=== PATIENT | female | born 1960 | race Caucasian/White ===

== ENCOUNTER 2018-03-27 01:04 | Outpatient (CLI) | payer BC, SELFPAY ==
--- NOTE | 2018-03-27 12:40 | DI.MAMMO_ITS ---
SYMPTOMS/DIAGNOSIS: SCREENING, Z12.31 BILATERAL SCREENING MAMMOGRAMS: Mammograms were interpreted according to the usual protocol including computer analysis with CAD system, tomosynthesis and C view imaging. Comparison is made with exams from 2013 through 2017. The breasts are composed of scattered fibroglandular densities, breast density category B. No suspicious masses or suspicious microcalcifications are seen. There has been no significant change. IMPRESSION: Category 1B, negative mammogram. Yearly screening mammography is recommended. [facility] ASSESSMENT OF FINDINGS: Negative. Category 1. Patient will receive a letter notifying them of these results. BI-RADS category B. There are scattered areas of fibroglandular density.
== END 2018-03-27 01:24 ==
PROVIDERS: PCP Family Medicine; Visit Provider Physician Assistant Medical
DX: Z12.31 Encounter for screening mammogram for malignant neoplasm of breast (principal)
CPT/HCPCS: 77063; 77067

== ENCOUNTER 2019-01-28 13:31 | Outpatient (CLI) | payer BC, SELFPAY ==
[2019-01-28 14:41] LABS: HCT 40.1 % (36.0-46.0); HGB 13.2 g/dL (12.0-15.5); Mean Corp. HGB Concentration 32.9 g/dL (32.0-36.0); Mean Corpuscular Hemoglobin 30.7 pg (27.0-33.0); Mean Corpuscular Volume 93.3 fL (80-95); Mean Platelet Volume 9.8 fL (8.0-11.0); Platelet Count 249 x1000/uL (130-400); RBC Distribution Width 11.9 % (11.7-14.6); White Blood Cell Count 4.45 k/cumm (4.4-10.8)
[2019-01-28 15:33] LABS: Anion Gap 6.3 mmol/L (3-11); BUN 11 mg/dL (7-18); CO2 30.7 mmol/L (21.0-32.0); CREATININE 0.67 mg/dL (0.55-1.02); Calcium 9.2 mg/dL (8.5-10.1); Chloride 105 mmol/L (98-107); Glucose 97 mg/dL (74-106); Sodium 142 mmol/L (136-145)
== END 2019-01-28 13:51 ==
PROVIDERS: PCP Family Medicine; Visit Provider Obstetrics & Gynecology Gynecology
DX: N81.10 Cystocele, unspecified (principal); Z01.818 Encounter for other preprocedural examination; Z01.812 Encounter for preprocedural laboratory examination
CPT/HCPCS: 36415; 80048; 85027; 86850; 86900; 86901

== ENCOUNTER 2019-02-05 15:09 | Observation (INO) | payer BC, SELFPAY ==
[2019-02-05] VITALS (13 sets, daily range): BP systolic 99–119; BP diastolic 44–63; PULSE 52–74; RESP 14–20; TEMP 36.1–37.6; O2SAT 95–100
[2019-02-05] MEDS: Lactated Ringers 1,000 ML 80 ML IV ×3 (09:49→16:24)
[2019-02-05] MEDS: ceFAZolin 2 GM/50 ML BAG IVPB (11:20)
--- NOTE | 2019-02-05 12:30 | UTER_PTH ---
PATIENT: Stefania Main LOC: U#:[id number] AGE/SX: 58/F ROOM: 214 RE02/05/[address]: Siena Root : 1960 BED: A DIS: 02/06/2019 SPEC #: [id number] RECD: 02/05/19 15:33 STATUS: YAMILET REQ #: [id number] GINA: 02/05/19 12:[address]: Siena Root DEPT: Surgical Specimen RECD BY: Peyton Lemus ENTERED: 02/05/19 15:37 SP TYPE: UTER OTHR DR: Sherman Chavez Tissues: 1 - UTERUS W OR W/O OVARIES(NOT TUMOR/PROLAPSE) Procedures: GROSS AND MICRO LEVEL 4 Comments: [id number]
[2019-02-05] MEDS: Ondansetron 4 MG/2 ML VIAL IVP (15:13)
[2019-02-05] MEDS: Droperidol 5 MG/2 ML VIAL 0.625 MG IVP (15:50)
--- NOTE | 2019-02-05 16:51 | W.PM.OP ---
Date of service: 02/05/19 Time of Service: 16:51 Operative Note Operative Note DATE OF PROCEDURE: 02/05/19 PRE-OP DIAGNOSIS: Stage II uterine prolapse, dyspareunia POST-OP DIAGNOSIS: same PROCEDURE: Transvaginal hysterectomy with bilateral salpingo-oophorectomy, bladder cystoscopy SURGEON: Siena Root DYNAMIC BALANCER: Reinaldo Simon ANESTHESIA: GETA ESTIMATED BLOOD LOSS: 50 PATHOLOGY: other (Uterus fallopian tubes and ovaries to pathology) COMPLICATIONS: None Patient was transported to: PACU Patient's condition: stable Indications: 58-year-old female with approximately a year of dyspareunia associated with stage II pelvic organ prolapse. Findings: Uterus is small with descent of the uterine cervix two thirds of the length of the vagina. The bladder is well supported as is the rectum with no appreciable cystocele or rectocele. Cystoscopy was performed showed bilateral reflux of methylene blue dye from both ureters and a normal bladder mucosa. Procedure Description: Patient was taken the operating room she is placed in the dorsal supine position and general endotracheal anesthesia was administered without difficulty. She was then placed in the dorsal lithotomy position in yellowfin stirrups prepped and draped in the usual sterile fashion. A surgical timeout was performed. She received 2 g of Ancef on arrival to the OR. Vaz catheter was placed to gravity drainage a weighted vaginal speculum was placed in to the vagina and the anterior lip of the cervix grasped with single-tooth tenaculum the body of the cervix was infiltrated with 1% lidocaine with epinephrine in a circumferential fashion. Bovie electrocautery was then used to incise the body of the cervix in a circumferential fashion and the posterior cul-de-sac was entered with curved Parrish scissors. Through this incision a longbilled weighted speculum was placed where it remained for the duration of the surgery. The anterior cervical fascia was bluntly dissected away from the pill of the ileum of the anterior vaginal wall allowing visualization of the vesicle fold. A curved Zeppelin clamp was used to grasp the right uterosacral cardinal ligament complex which was then transected and suture-ligated with 0 Vicryl. A similar technique was used on the contralateral uterosacral cardinal ligament complex both sutures were held long. The anterior cul-de-sac was then entered sharply with Metzenbaum scissors and through the incision a curved Kelly was placed to retract the bladder away from the operative field. The broad ligament was then sequentially clamped transected and suture-ligated bilaterally until the uterine cornua reached. A curved Zeppelin clamp was then placed across the right uterine cornua where it was clamped transected and suture-ligated similar technique was carried out on the contralateral side. Once the uterus was delivered off the operative field the pedicles were inspected and noted to be hemostatic. The left fallopian tube and left ovary were located and clamped with curved Zeppelin clamp and transected. This free tie of 0 Vicryl was then placed across the pedicle followed by a 6 suture of 0 Vicryl in a Luz stitch fashion. The specimen was then passed off the operative field. The right fallopian tube was located followed out to its fimbriated end and the ovary and fallopian tube were clamped with curved Zeppelin clamp transected and the pedicle suture ligated in Luz fashion with using 0 Vicryl. Both pedicles were noted to be hemostatic. The weighted duckbill speculum was then removed and the peritoneum was located and closed with a pursestring suture of 2-0 Vicryl. The vaginal cuff was then reapproximated with a running lock suture of 0 Vicryl extending from superior to the inferior portion of the vaginal cuff. Care was taken to incorporate the uterosacral cardinal ligament complexes into the vaginal cuff closure. A cystoscopy was performed with instillation of normal saline into the bladder and an injection of methylene blue given by anesthesia. Bilateral brisk reflux of the diet was noted from both ureteral orifices. Vaz catheter was reinserted the patient was placed in the dorsal supine position awakened extubated and transported recovery area in stable condition. All sponge lap needle counts correct x2
[2019-02-05] MEDS: Ketorolac 30 MG/ML VIAL IVP ×2 (17:59→22:17)
[2019-02-05] MEDS: Normal Saline Flush 10 ML SYR IV ×2 (17:59→22:18)
[2019-02-05] MEDS: Docusate Sodium 100 MG CAP PO (20:05)
[2019-02-05] MEDS: Lactated Ringers 1,000 ML 125 ML IV (22:45)
--- NOTE | 2019-02-06 02:30 | NUR.NOTE ---
Nursing Note: Pt received from PACU staff on M/S bed. AO x 3, accompanied by during admission. visited and ordered for additional Promethazine IVPB, infused and with good effect. Medicated with ketoralac as scheduled and also with good relief. Minimal vaginal bloody discharge noted on the sanitary pad. Vaz discontinued and voided in the toilet with few streaks of blood. Ambulate in the hallway and feels much better this end of shift. Call lights at reach.
[2019-02-06] MEDS: Ketorolac 30 MG/ML VIAL IVP (04:20)
[2019-02-06 04:23] VITALS: BP 101/57; PULSE 74; RESP 18; TEMP 37.2; O2SAT 95
[2019-02-06] MEDS: Lactated Ringers 1,000 ML 125 ML IV (06:21)
[2019-02-06 07:52] LABS: HCT 33.1 % (36.0-46.0); Mean Corp. HGB Concentration 33.2 g/dL (32.0-36.0); Mean Corpuscular Hemoglobin 30.6 pg (27.0-33.0); Mean Corpuscular Volume 91.9 fL (80-95); Mean Platelet Volume 10.6 fL (8.0-11.0); Platelet Count 201 x1000/uL (130-400); White Blood Cell Count 10.36 k/cumm (4.4-10.8)
[2019-02-06 08:46] VITALS: BP 102/63; PULSE 56; RESP 18; TEMP 36.6; O2SAT 97
[2019-02-06] MEDS: Docusate Sodium 100 MG CAP PO (09:00)
--- NOTE | 2019-02-06 09:22 | W.PM.DS.N ---
Date of service: 02/06/19 Time of Service: 09:22 DS: Diagnosis Discharge Diagnosis (1) Pelvic organ prolapse quantification stage 2 cystocele: Status: Chronic (2) Dyspareunia: Status: Chronic (3) H/O vaginal hysterectomy: Status: Acute (4) H/O bilateral salpingo-oophorectomy: Status: Acute Discharge Plan Disposition Patient Disposition: HOME Condition: Fair Discharge Details Reason For Visit: TVH, BSO Admit Date/Time: 02/05/19 15:09 Admit Provider: Siena Root Attending Provider: Siena Root Primary Care Provider: Sherman Chavez Hospital Course Hospital Course: Patient was admitted the morning of surgery and underwent the above-stated procedures. Her postop course was uncomplicated she was discharged home on postop day #1 tolerating regular diet, passing flatus, and requiring a minimal amount of pain medications. Plan is to have her follow-up in approximately 2 weeks for a postop check and to discuss the pathology results from the surgery. Patient will be given a prescription for Percocet 5/325 number 5 tablets to be dispensed however she will be unable to fill it until tomorrow morning since the local pharmacies are closed secondary to the holiday. She is aware of this and was instructed to have the staff notify me in the event that she needs additional narcotic support for her pain between tonight and tomorrow morning. In that case I will have the patient presented to the emergency room be evaluated and given a prescription of Percocet that will suffice until tomorrow morning. Home Meds and New Rx's Prescriptions: No Action bupropion HCl 150 mg tablet sustained-release 12 hr 300 mg PO DAILY RF: 0 cromolyn 4 % drops See Rx Instructions OP .every 12 hours PRNRF: 0 levothyroxine 112 mcg capsule 112 mcg PO DAILY RF: 0 ibuprofen 600 mg tablet 600 mg PO TID PRNRF: 0 liothyronine 5 mcg tablet 15 mcg PO DAILY RF: 0 loratadine 10 mg capsule 10 mg PO DAILY RF: 0 zolpidem 12.5 mg tablet,ext release multiphase 12.5 mg PO QHS RF: 0 cholecalciferol (vitamin D3) [Vitamin D3] 2,000 unit Tablet 2,000 unit RF: 0 Discharge Instructions Additional Instructions: If feel that you will not be able to be at home this evening without Percocet the plan is to have you present to the emergency room at [facility] and receive additional tablets until you are able to have your prescription filled at your local pharmacy. Call the office on Sunday02/10/2019 and change her appointment time for your postop check to 02/20/2019. No driving a car for approximately 2 weeks or until you have your appointment with Dr. Root for your postop check. No lifting over 10 pounds. Definitely no lifting your puppy!!!! Call and ask the conveyor operator to page the on-call provider with any concerns or questions you may have. Stand Alone Forms: [facility] Post Gynecology Surgery, Nursing Discharge Form Referrals: Siena Root MD [ [facility] STAFF PHYSICIAN] - Activity:: Activity as Tolerated Equipment/Supplies:: No Equipment Needed Diet:: As Tolerated Discharge Orders Discharge Orders: Discharge Order (Routine); Ordered 02/06/19 Ordered By: Siena Root Discharge Data Discharge Date/Time-TO BE ENTERED AT DEPARTURE: 02/06/19 15:18 DS: Summary Status at Discharge Functional status at discharge: independent ambulation Overall status at discharge: patient is progressing back to baseline Mental Status: mental status grossly normal Speech and Movement: speech and movement normal Mood: congruent mood Affect: normal affect Exam Const General: cooperative and comfortable Nutritional Appearance: average body habitus Resp Effort & Inspection: normal respiratory effort Auscultation: clear to auscultation bilaterally Cardio Rate: regular rate Rhythm: regular rhythm General: deferred Skin General skin exam: no rashes or lesions noted Extrem General: normal to inspection, full ROM and capillary refill normal Psych Appearance: grossly normal Mental Status: mental status grossly normal Speech and Movement: speech and movement normal Mood: congruent mood Affect: normal affect DS: Data Vitals/I&O Vitals and I&O: Vital Signs Temperature 97.9 F 02/06/19 08:46 Temperature Source Tympanic 02/06/19 08:46 Pulse 56 L 02/06/19 08:46 Pulse Rhythm Regular 02/06/19 09:09 Respiratory Rate 18 02/06/19 08:46 Respiratory Effort Non-Labored 02/06/19 09:09 Respiratory Depth Normal 02/06/19 09:09 Respiratory Pattern Normal 02/06/19 09:09 Blood Pressure 102/63 02/06/19 08:46 Pulse Oximetry 97 02/06/19 08:46 Respiratory End-tidal CO2 39 02/05/19 16:25 Oxygen Delivery Method Room Air 02/06/19 08:46 Oxygen Flow Rate 0 02/06/19 08:46 Pain Level 0 02/06/19 08:46 Intake & Output 02/05/19 02/05/19 02/06/19 11:59 23:59 11:59 Intake Total 2099.2049. 2510 / 2510 Output Total 700 / 700 1850 / 1850 Balance 1399. 1350. / 1399. 660 / 660 Weight 172 lb 13.478 oz 172 lb 13.478 oz Intake: IV 2049. / 1960 / 1960 Oral 550 / 550 Output: Urine 700 / 700 1850 / 1850 Other: Urine Color Yellow Yellow Urine Appearance Clear Hematuria Clear Urine Odor Normal Comment DRAINING BLUE FLUID. light blood INDIGO BLUE USED DURING SURGERY. Emesis Description None Voiding Methods Toilet Data Completed and Pending Labs on day of discharge: Labs from last 24 hours 02/06/19 07:20 WBC 10.36 RBC 3.60 L Hgb 11.0 L Hct 33.1 L MCV 91.9 MCH 30.6 MCHC 33.2 RDW 12.0 Plt Count 201 MPV 10.6 PFSH Medical History (Updated 02/06/19 @ 09:24 by Siena Root MD) Atopic dermatitis (Acute) Biotin deficiency disease (Chronic) Depressive disorder (Chronic) Generalized hyperhidrosis (Acute) Hyperglycemia (Suspected) Hypersomnia (Chronic) Hypothyroidism (Chronic) Inflammation of sacroiliac joint (Suspected) Iron deficiency anemia (Resolved) Onychomycosis (Chronic) Organic sleep disorder (Chronic) Psychophysiologic insomnia (Chronic) Right lower quadrant pain (Resolved) 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) Urinary tract infectious disease (Acute) Surgical History (Updated 02/06/19 @ 09:24 by Siena Root MD) H/O bilateral salpingo-oophorectomy (Acute) 02/05/2019 H/O dilation and curettage (Acute) Uterine lining ablation, 08/06/2008 H/O vaginal hysterectomy (Acute) 02/05/2019 History of colonoscopy (Chronic) History of endometrial ablation (Resolved) Social History (Updated 09/12/18 @ 20:03 by Siena Root MD) Smoking/Tobacco Use Status: Former Tobacco Use Alcohol Intake: current Alcohol Intake frequency: 0-2 drinks per day Counseling given: No Drug use: Daily Substance use type: marijuana Counseling given: No Household members: spouse and other Details: H-Esvin 35 years. 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 Sexually active: Yes Do you feel safe at home: Yes Do you feel safe in your relationship?: Yes Additional Social history: 2019. 2 children: Sahil 33yo, Jarod 30yo Female Reproductive History Menstrual control method: permanent sterilization Menopause type: natural
[2019-02-06] MEDS: oxyCODONE 5 mg/Acetaminophen 325 mg TAB PO (09:30)
== END 2019-02-06 15:18 | disposition home or self-care (01) ==
LOC: MS 16:52
PROVIDERS: Admitting Provider Obstetrics & Gynecology Gynecology; PCP Family Medicine; Visit Provider Obstetrics & Gynecology Gynecology
PROC: 0UT97ZZ Resection of Uterus, Via Natural or Artificial Opening (ICD-10-PCS; CPT 57260; principal; 2019-02-05 11:45)
PROC: 0UT97ZZ Resection of Uterus, Via Natural or Artificial Opening (ICD-10-PCS; CPT 58260; 2019-02-05 11:45)
DX: N81.2 Incomplete uterovaginal prolapse (principal); N94.10 Unspecified dyspareunia; N72 Inflammatory disease of cervix uteri; N94.89 Other specified conditions associated with female genital organs and menstrual cycle; D25.1 Intramural leiomyoma of uterus; Z78.0 Asymptomatic menopausal state; E03.9 Hypothyroidism, unspecified; F32.9 Major depressive disorder, single episode, unspecified
CPT/HCPCS: 58260; 52000; 36415; 85027; 88305; NC; 88307; G0378; J0690; J1100; J1200; J1790; J1885; J2001; J2250; J2405; J3010

== ENCOUNTER 2019-08-27 02:33 | Outpatient (CLI) | payer BC, SELFPAY ==
--- NOTE | 2019-08-27 | DI.MAMMO_ITS ---
EXAM: MAMMO SCREENING CLINICAL HISTORY: SCREENING, Z12.31 TECHNIQUE: Mammograms were interpreted according to the usual protocol including computer analysis w ith CAD system, tomosynthesis and C-view imaging. COMPARISON: 2011 through 2018 FINDINGS: The breasts are composed of scattered fibroglandular densities, Breast Density category B. No suspicious masses or suspicious microcalcifications are seen. No skin thickening or abnormal axillary lymph nodes are seen. There has been no significant change from prior exams. IMPRESSION: BI-RADS Category 1 - Negative. Yearly screening mammography is recommended. Breast Density Category B, scattered fibroglandular densities.
== END 2019-08-27 02:53 ==
PROVIDERS: PCP Family Medicine; Visit Provider Physician Assistant Medical
DX: Z12.31 Encounter for screening mammogram for malignant neoplasm of breast (principal)
CPT/HCPCS: 77063; 77067

== ENCOUNTER 2022-10-18 02:20 | Outpatient (CLI) | payer BC, SELFPAY ==
--- NOTE | 2022-10-18 09:15 | DI.MAMMO_ITS ---
Exam(s) MAMMO SCREENING EXAM: MAMMO SCREENING CLINICAL HISTORY: SCREENING, Z12.39 TECHNIQUE: Mammograms were interpreted according to the usual protocol including computer analysis w [employer] CAD system, tomosynthesis and C-view imaging. COMPARISON: 2013 through 2019 FINDINGS: The breasts are composed of scattered fibroglandular densities, Breast Density category B. No suspicious masses or suspicious microcalcifications are seen. No skin thickening or abnormal axillary lymph nodes are seen. There has been no significant change from prior exams. IMPRESSION: BI-RADS Category 1, Negative mammogram Yearly screening mammography is recommended. Breast Density - Category B, scattered fibroglandular densities. A negative radiographic report should not delay biopsy if a dominant or clinically suspicious mass is present. Up to ten percent of cancers are not identified on mammography. A negative report may reinforce clinical impression. Adenosis and dense breasts may obscure an underlying neoplasm. False positive reports average 6 to 10%. Patient will receive a letter notifying them of these results.
== END 2022-12-27 14:47 ==
LOC: DI 02:20
PROVIDERS: PCP Family Medicine; Visit Provider Physician Assistant Medical
DX: Z12.31 Encounter for screening mammogram for malignant neoplasm of breast (principal)
CPT/HCPCS: 77063; 77067

== ENCOUNTER 2023-11-29 10:42 | Outpatient (CLI) | payer BC, SELFPAY ==
--- NOTE | 2023-11-29 08:30 | DI.RAD_ITS ---
Exam(s) XR HIP RT COMPLETE AP PELVIS EXAM: XR HIP RT COMPLETE AP PELVIS CLINICAL HISTORY: knee pain. TECHNIQUE: 2D digital imaging was performed. Two views COMPARISON: No exams were available for comparison FINDINGS: BONES: No acute fracture is present. No bony destructive lesion is seen. JOINTS: No dislocation present. Hip joint spaces are maintained. There is mild spurring at the rig ht acetabulum. Minimal spurring at the SI joints and pubic spent emphasis. SOFT TISSUE: Normal. IMPRESSION: Mild degenerative changes. DATA REPOSITORY: RADIATION DOSE DELIVERED:
--- NOTE | 2023-11-29 08:50 | DI.RAD_ITS ---
Exam(s) XR KNEE RT 4V AP,LAT,BRIDGETTE,PAT EXAM: XR KNEE RT 4V AP,LAT,BRIDGETTE,PAT CLINICAL HISTORY: knee pain. TECHNIQUE: 2D digital imaging was performed. COMPARISON: No exams were available for comparison FINDINGS: Four views. No evidence fracture or obvious joint effusion. No significant degenerative changes. Bone density n ormal. No osseous lesions. IMPRESSION: No significant osseous findings in the right knee. DATA REPOSITORY: RADIATION DOSE DELIVERED:
== END 2023-11-29 10:43 | disposition home or self-care (01) ==
LOC: DIORS 10:43
PROVIDERS: PCP Family Medicine; Visit Provider Physician Assistant
DX: M25.561 Pain in right knee (principal); M16.11 Unilateral primary osteoarthritis, right hip
CPT/HCPCS: 73502; 73564

== ENCOUNTER 2023-12-20 01:40 | Outpatient (CLI) | payer BC, SELFPAY ==
--- NOTE | 2023-12-20 11:30 | DI.MRI_ITS ---
Exam(s) MR LOWER JOINT RT WO EXAM: MR LOWER JOINT RT WO CLINICAL HISTORY: PAIN,internal derangement rt knee,m23.91 TECHNIQUE: Multiplanar multisequence MRI of the knee was performed. COMPARISON: CR XR KNEE RT 4V AP,LAT,BRIDGETTE,PAT from 11/29/2023 FINDINGS: EFFUSION: There is a minimal amount of increased joint fluid. There is no large joint effusion. The re is small salazar cyst in the popliteal fossa. MARROW:There is no evidence of fracture, bone contusion, nor osteochondral defects.. There are no si gnificant osseous lesions. PATELLOFEMORAL COMPARTMENT: The quadriceps tendon is intact. The patellar ligament is intact. Mild surface irregularity at the mid aspect of the retropatellar cartilage. No prominent fissure nor high-grade thinning of the retropatellar cartilage and no abnormal intraosseous signal in the patell a.There is no intraosseous signal to suggest recent patellar dislocation. There are no patellar retin acular tears. CRUCIATE LIGAMENTS: The anterior cruciate ligament is intact.The posterior cruciate ligament is intac t. MEDIAL COMPARTMENT/MEDIAL MENISCUS: There are no tears of the medial meniscus evident.. There is mild thinning of the articular cartilage over the medial condyle. There are no large chondr al defects nor osteochondral defects and no subarticular bone edema nor osteophytes evident. MEDIAL COLLATERAL LIGAMENT: Intact LATERAL COMPARTMENT/LATERAL MENISCUS: There is tear of the anterior horn of the medial meniscus and t here is a multi-septated degenerative meniscal cyst associated with this tear interposed between the outer aspect of the disc and the iliotibial band. This degenerative meniscal cyst measures approxima tely 1.8 cm AP by 0.4 cm wide by 0.6 cm maximum height. There is no obvious tear of the posterior ho rn.There are no chondral defects, osteochondral defects, subarticular marrow edema, nor osteophytes e vident. ILIOTIBIAL BAND: Intact LATERAL COLLATERAL LIGAMENT COMPLEX: The fibular collateral ligament is intact. The biceps femoris t endon is intact.Popliteus muscle and tendon are intact. IMPRESSION: 1. The main finding here is a horizontal tear in the anterior horn of the lateral meniscus and there is an associated multi septated degenerative meniscal cyst emanating from the outer 3rd of the torn m eniscus at this level and measuring approximately 18 mm AP x 4 mm wide x 6 mm height. The meniscal t ear does not appear to involve the posterior horn. There is also no evidence of tear of the medial m eniscus. 2. There are no cruciate nor collateral ligament tears. 3. Minimal degenerative changes, as described above.. 4. Small amount of increased joint fluid. Also small Salazar's cyst. No obvious loose intra-articular bodies evident. DATA REPOSITORY:
== END 2023-12-20 02:00 ==
LOC: DI 01:40
PROVIDERS: PCP Family Medicine; Visit Provider Student in an Organized Health Care Education/Training Program
DX: M23.341 Other meniscus derangements, anterior horn of lateral meniscus, right knee (principal)
CPT/HCPCS: 73721

== ENCOUNTER 2024-02-05 10:53 | Day surgery (SDC) | payer BC, SELFPAY ==
[2024-02-05] VITALS (13 sets, daily range): BP systolic 112–143; BP diastolic 58–77; PULSE 44–60; RESP 11–17; TEMP 36.1–36.9; O2SAT 97–100; BMI 24.0
--- NOTE | 2024-02-05 11:42 | W.ANESPRE ---
General Info Date of Service Date Performed: 02/05/24 Height: 5 ft 9 in Weight: 74 kg Body Mass Index (BMI): 24.0 Surgical Procedure: Operation Date: 02/05/24 14:40 Proposed Procedure Side Surgeon p Knee Arthroscopy, Partial Lateral Menisectomy Right Kiran Berkowitz MD Meds Allergies and Home Medications Allergies Allergy/AdvReac Type Severity Reaction Status Date / Time clarithromycin (From Biaxin) AdvReac Severe Vomiting Verified 02/05/24 11:25 metronidazole (From Flagyl) AdvReac Severe vomiting Verified 02/05/24 11:25 Home Medication ?Medication ?Instructions ?Recorded bupropion HCl 150 mg tablet,12 hr 300 mg PO DAILY 07/12/18 sustained-release cromolyn 4 % eye drops See Rx Instructions ophthalmic 07/12/18 (eye) .every 12 hours PRN ibuprofen 600 mg tablet 600 mg PO TID PRN 07/12/18 levothyroxine 112 mcg capsule 112 mcg PO DAILY 07/12/18 liothyronine 5 mcg tablet 15 mcg PO DAILY 07/12/18 loratadine 10 mg capsule 10 mg PO DAILY 07/12/18 zolpidem 12.5 mg tablet,extended 12.5 mg PO QHS 07/12/18 release,multiphase cholecalciferol (vitamin D3) 50 2,000 unit PO DAILY 02/05/19 mcg (2,000 unit) tablet (Vitamin D3) Current Visit Medications: Current Medications Generic Name Dose Route Start Last Admin Trade Name Freq PRN Reason Stop Dose Admin Acetaminophen 1,000 mg 02/05/24 06:00 Acetaminophen 500 Mg Tab PO 02/05/24 16:00 PREOP JOCY Celecoxib 400 mg 02/05/24 06:00 Celecoxib 200 Mg Cap PO 02/05/24 16:00 PREOP JCOY Ringer's Solution 1,000 mls @ 80 mls/hr 02/05/24 06:00 IV 03/05/24 23:59 INFUSION JOCY Cefazolin Sodium/Dextrose 2 gm in 50 mls @ 100 mls/hr 02/05/24 06:00 Ancef Duplex IVPB 02/05/24 16:00 PREOP JOCY Tranexamic Acid 1,000 mg/ 110 mls @ 660 mls/hr 02/05/24 06:00 Sodium Chloride IVPB 02/05/24 16:00 PREOP JOCY IV Miscellaneous Supplies 1 each 02/05/24 06:00 Iv Access IV 03/05/24 23:59 DIRECTED JOCY Sodium Chloride 0 ml 02/05/24 06:00 Normal Saline Flush 10 Ml Syr IV 03/05/24 23:59 PRN PRN Sodium Chloride 0 ml 02/05/24 06:00 Normal Saline 10 Ml Vial IJ 03/05/24 23:59 DIRECTED PRN Sterile Water 0 ml 02/05/24 06:00 Water,Injection,Sterile 10 Ml Vial IJ 03/05/24 23:59 DIRECTED PRN PFSH Active Problems Active Problems: Problem Status Onset Code Tear of lateral meniscus of right knee Acute S83.281A Internal derangement of right knee Acute M23.91 H/O bilateral salpingo-oophorectomy Acute Z90.79, Z90.722 H/O vaginal hysterectomy Acute Z90.710 Dyspareunia Chronic Pelvic organ prolapse quantification stage 2 cystocele Chronic N81.10 History of endometrial ablation Resolved Z98.890 H/O dilation and curettage Acute Z98.890 Right lower quadrant pain Resolved R10.31 Complete fecal incontinence Resolved R15.9 Generalized hyperhidrosis Acute R61 Urinary tract infectious disease Acute N39.0 Atopic dermatitis Acute L20.9 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 Hypersomnia Chronic G47.10 Depressive disorder Chronic F32.9 Psychophysiologic insomnia Chronic F51.04 Iron deficiency anemia Resolved D50.9 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 Hypothyroidism Chronic E03.9 Onychomycosis Chronic B35.1 Surgical History Surgical History History of surgical removal of ganglion cyst (R) Hand History of colonoscopy Tobacco Smoking/Tobacco Use Status: Former Tobacco Use Alcohol Alcohol Intake: current Alcohol intake frequency: 0-2 drinks per day Substance Use Substance use: Daily Substance use type: marijuana Details: Used marijuana 02/03 Vital Signs and Lab Results Vital Signs Most Recent Vital Signs in EMR: Most Recent Vital Signs Temp Pulse Resp BP Pulse Ox 36.1 C L 55 L 16 124/60 100 02/05/24 11:18 02/05/24 11:18 02/05/24 11:18 02/05/24 11:18 02/05/24 11:18 Lab Results Blood Type / Crossmatch: No Data to Display Complete Blood Count: No Data to Display Complete Metabolic Panel: No Data to Display Liver Function Panel: No Data to Display Coagulation Panel: No Data to Display Cardiac Panel: No Data to Display Arterial Blood Gas: No Data to Display Venous Blood Gas: No Data to Display Pancreas Panel: No Data to Display Thyroid Panel: No Data to Display Infectious Disease: No Data to Display Blood Cultures: No Data to Display Toxicology Panel: No Data to Display Anesthesia Assessment and Plan Anesthesia History Personal History: PONV Family History: No Family History of Anesthesia Complications Exercise Tolerance Exercise Tolerance: Metabolic Equivalents>4 Pertinent Negatives Pertinent Negatives: No Symptoms of GERD Cardiac & Pulmonary Exam Cardiac Exam: Normal S1/S2 Heart Sounds Pulmonary Exam: Clear Bilateral Breath Sounds (recent URI. No symptoms for > week.) Implantable Cardiac Device Does patient have a Pacemaker or an ICD?: No Airway Exam Known Difficult Airway: Yes Previous Airway Comments:: ? small mouth opening Mallampati Class: 2 Mouth Opening: Narrow (< 3cm) Thyromental Distance: Greater than 3 cm Neck Range of Motion: Full ROM Neck Circumference: Normal Teeth Condition: Normal Dentition ASA Classification ASA Score: ASA 2 Emergency Case?: No NPO Status NPO Status: NPO Clears >2 hours, Solids >8 hours Anesthesia Plan Resuscitation Status: Full Code Anesthesia Technique: General Anesthesia Airway Planned: LMA Monitors Used: Standard Monitors
[2024-02-05] MEDS: Acetaminophen 500 MG TAB 1000 MG PO (11:43)
[2024-02-05] MEDS: Celecoxib 200 MG CAP 400 MG PO (11:43)
[2024-02-05] MEDS: Lactated Ringers 1,000 ML 80 ML IV (11:56)
--- NOTE | 2024-02-05 12:12 | W.PREOPHP ---
Assessment and Plan Assessment and plan (1) Tear of lateral meniscus of right knee: Status: Acute Assessment and plan: Stefania is a 63-year-old female who has a tear about the lateral meniscus of the right knee. She has ongoing pain which is limiting her function. She is here today for arthroscopic meniscal intervention. Once again, I reviewed technical details of the surgery. I discussed the necessary time for rehabilitation. I reviewed the risk to include bleeding, infection, pain, stiffness, worsening arthritis or osteonecrosis, blood clot. Despite these risk, she elects to proceed. History of Present Illness History of Present Illness Chief Complaint: Right Knee Lateral Meniscus Tear Narrative: Stefania is a 63-year-old female who has had some persistent lateral based right knee pain. MRI confirmed a displaced lateral meniscal tear. After discussing options she is here today for arthroscopic meniscal intervention about the right knee. She denies any new changes to her health history. Review of Systems All systems reviewed & are unremarkable except as noted in HPI and below PFSH All Active Problems Tear of lateral meniscus of right knee (Acute) Internal derangement of right knee (Acute) H/O bilateral salpingo-oophorectomy (Acute) 02/05/2019 H/O vaginal hysterectomy (Acute) 02/05/2019 Dyspareunia (Chronic) Pelvic organ prolapse quantification stage 2 cystocele (Chronic) Stage II cystocele and uterine prolapse. No plans for surgery at this time. 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) Organic sleep disorder (Chronic) Hypersomnia (Chronic) Depressive disorder (Chronic) Psychophysiologic insomnia (Chronic) Biotin deficiency disease (Chronic) Hypothyroidism (Chronic) Onychomycosis (Chronic) Surgical History History of surgical removal of ganglion cyst (R) Hand History of colonoscopy Family History Mother Breast cancer Diabetes Hypertension Father Throat cancer Paternal Grandfather Brain cancer Social History Smoking/Tobacco Use Status: Former Tobacco Use Quit Date: 03/12/99 Smoking risk assessment performed?: Yes Alcohol Intake: current Alcohol Intake frequency: 0-2 drinks per day Counseling given: No Drug use: Daily Substance use type: marijuana Counseling given: No Details: Used marijuana 02/03 Household members: spouse and other Details: Lorena 35 years. 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 Sexually active: Yes Do you feel safe at home: Yes Do you feel safe in your relationship?: Yes Female Reproductive History Menstrual control method: permanent sterilization Menopause type: natural Meds Allergies and Home Medications Allergies Allergy/AdvReac Type Severity Reaction Status Date / Time clarithromycin (From Biaxin) AdvReac Severe Vomiting Verified 02/05/24 11:25 metronidazole (From Flagyl) AdvReac Severe vomiting Verified 02/05/24 11:25 Home Medications ?Medication ?Instructions ?Recorded ?Confirmed ?Type bupropion HCl 150 mg tablet,12 hr 300 mg PO DAILY 07/12/18 02/05/24 History sustained-release cromolyn 4 % eye drops See Rx Instructions ophthalmic 07/12/18 02/05/24 History (eye) .every 12 hours PRN ibuprofen 600 mg tablet 600 mg PO TID PRN 07/12/18 02/05/24 History levothyroxine 112 mcg capsule 112 mcg PO DAILY 07/12/18 02/05/24 History liothyronine 5 mcg tablet 15 mcg PO DAILY 07/12/18 02/05/24 History loratadine 10 mg capsule 10 mg PO DAILY 07/12/18 02/05/24 History zolpidem 12.5 mg tablet,extended 12.5 mg PO QHS 07/12/18 02/05/24 History release,multiphase cholecalciferol (vitamin D3) 50 2,000 unit PO DAILY 02/05/19 02/05/24 History mcg (2,000 unit) tablet (Vitamin D3) Exam Resp Effort & Inspection: normal respiratory effort Auscultation: clear to auscultation bilaterally Cardio Rate: regular rate Rhythm: regular rhythm Results Last Vital Signs Temp 36.1 C L 02/05/24 11:18 Pulse 55 L 02/05/24 11:18 Resp 16 02/05/24 11:18 BP 124/60 02/05/24 11:18 Pulse Ox 100 02/05/24 11:18
[2024-02-05] MEDS: ceFAZolin 2 GM/50 ML BAG IVPB (13:31)
[2024-02-05] MEDS: Bupivacaine 0.25% Pres-Free 30 ML VIAL (13:50)
--- NOTE | 2024-02-05 14:08 | W.PM.DSUDISC ---
Date of service: 02/05/24 Discharge Plan Disposition Patient Disposition: Home Condition: Good Discharge Details Reason For Visit: right knee lateral meniscus tear Attending Provider: Kiran Berkowitz Primary Care Provider: Sherman Chavez Home Meds and New Rx's Prescriptions: New acetaminophen 500 mg tablet 500 mg PO Q6H PRN (Reason: pain) Qty: 60 2RF hydrocodone-acetaminophen 5-325 mg tablet 1 tab PO Q6H PRN (Reason: severe pain) Qty: 6 0RF Rx Instructions: Take one tablet up to every 6 hours as needed for severe postoperative pain ibuprofen 600 mg tablet 600 mg PO TID PRN (Reason: pain) Qty: 60 0RF Continued bupropion HCl 150 mg tablet sustained-release 12 hr 300 mg PO DAILY cromolyn 4 % drops See Rx Instructions OP .every 12 hours PRN Patient Comments: OP .every 12 hours PRN; Rx Instructions: OP .every 12 hours PRN; levothyroxine 112 mcg capsule 112 mcg PO DAILY liothyronine 5 mcg tablet 15 mcg PO DAILY loratadine 10 mg capsule 10 mg PO DAILY zolpidem 12.5 mg tablet,ext release multiphase 12.5 mg PO QHS cholecalciferol (vitamin D3) [Vitamin D3] 2,000 unit Tablet 2,000 unit PO DAILY Discontinued ibuprofen 600 mg tablet 600 mg PO TID PRN Discharge Instructions Stand Alone Forms: Sho Knee Arthroscopy Referrals: Kiran Berkowitz MD [ [facility] STAFF PHYSICIAN] - Equipment/Supplies: Partial Weight Bearing Crutches Activity:: Elevate Remove Dressings/Wound Care:: 48 hours Shower/Bathe:: 48 hours Diet:: As Tolerated Discharge Orders Discharge Orders: Discharge Order (Routine); Ordered 02/05/24 Ordered By: Laura Tai DS: Diagnosis Discharge Diagnosis (1) Tear of lateral meniscus of right knee: Status: Acute
[2024-02-05] MEDS: EPINEPHrine 10 MG/10 ML ML (14:17)
--- NOTE | 2024-02-05 14:54 | W.ANESPOSTOP ---
Postoperative Evaluation Date, Time and Location Date Performed: 02/05/24 Time Performed: 14:54 Patient Location: PACU Vital Signs Most Recent Imported Vital Signs: Most Recent Vital Signs Temp Pulse Resp BP Pulse Ox 36.7 C 44 L 14 143/67 H 98 02/05/24 14:45 02/05/24 14:46 02/05/24 14:47 02/05/24 14:46 02/05/24 14:47 Pain Score Most Recent Pain Score: Most Recent Pain Score Pain Level 0 02/05/24 14:45 Assessment Mental Status: Awake (Alert & Oriented to Patient Baseline) Airway and Respiratory Function: Patent airway with normal (patient baseline) respiratory exam Cardiovascular Function: Hemodynamically Stable Hydration Status: Adequately Hydrated Nausea & Vomiting: No Nausea or Vomiting Pain: Pt. Denies Any Pain Peripheral Nerve Block: Patient did not receive a nerve block
--- NOTE | 2024-02-05 15:14 | ROE_ITS ---
Operative Note Operative Note PRE-OP DIAGNOSIS: Right knee lateral meniscus tear POST-OP DIAGNOSIS: same PROCEDURE: Arthroscopic partial lateral meniscectomy with medial and lateral chondroplasty?right knee SURGEON: Kiran Berkowitz ANESTHESIA TYPE: General LMA/ETT Refer to Anesthesia Record ESTIMATED BLOOD LOSS: 5 PATHOLOGY: none sent TOURNIQUET TIME: 0 COMPLICATIONS: None Patient was transported to: PACU Patient's condition: stable Indications: I have seen Stefania in clinic for symptoms of a meniscus tear. This was confirmed based on MRI and exam findings. Nonoperative measures were exhausted but disability and pain persisted. I discussed knee arthroscopy with meniscal intervention with the patient. I reviewed the risks of the procedure to include, but not limited to, bleeding, infection, pain, stiffness, damage to nerves or vessels, recurrence, blood clot. Despite these risks, the patient elected to proceed. Findings: A diagnostic arthroscopy was performed with the following findings: Suprapatellar Pouch: No significant inflammation, No loose bodies Medial Compartment: No meniscal tear, Intact meniscal root, focal area of grade II/III chondromalacia about the central?posterior aspect of the medial femur but without significant chondromalacia of the tibia, No loose bodies Notch: ACL and PCL were intact Lateral Compartment: Complex tear about the anterior horn of the lateral meniscus with a primary horizontal tear component and degenerative tissue within the meniscus, Intact meniscal root, focal areas of grade II chondromalacia, No loose bodies Patellofemoral Compartment: 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 The consent was reviewed with the patient and signed. The history and physical was updated. All questions were answered. She was taken back to the operating room. The patient was placed into the supine position on the operating room table. All bony prominences were well p added. Prophylactic antibiotics in the form of Cefazolin were administered. The right leg was then prepped with Chloraprep and draped in a standard fashion with stockinette and extremity drape. A timeout to confirm correct identity, side and site, procedure, allergies, anesthesia, and medical concerns was performed. A standard lateral portal was made at the lateral border of the patella tendon in line with the inferior pole of the patella, soft spot. The skin and deep tissue was incised sharply and the blunt trochar was inserted atraumatically. A diagnostic arthroscopy was performed and the findings are listed above. The suprapatellar pouch had no significant inflammatory change. The patellofemoral articulation showed some grade II chondromalacia at the apex of the patella as well as good tracking. The lateral gutter had no loose bodies and the medial gutter had no loose bodies. The knee was brought into some valgus stress in extension to open the medial compartment. A medial portal was made, localized by a spinal needle. The portal was created with an #11 blade through skin and capsule under direct visualization avoiding any meniscal injury. A probe was then inserted into the medial compartment. The medial compartment was fully inspected. The chondral surface of the tibia showed no significant chondromalacia and the surface of the femur showed no significant cho ndromalacia, but upon flexion of the knee there was a focal defect seen about the central?posterior aspect of the medial femur. This had a slightly loose cartilage flap on its medial aspect but did not go all the way down to bone it was at most 2 mm wide. The medial meniscus had no meniscal tear. Cartilage surfaces were debrided of any flaps, leaving any intact fibers. The notch was then inspected which showed an intact ACL and an intact PCL. The leg was then brought into a figure of 4 position. The lateral compartment was fully inspected with the arthroscope and a probe. The chondral surface of the lateral femur showed focal grade 2 chondromalacia. The chondral surface of the lateral tibia showed grade II chondromalacia focally. The lateral meniscus had a complex tear with a primary horizontal component about the body and the anterior horn. There is some degenerative tissue seen within the meniscus at this level as well extending nearly to the periphery. After evaluation, the meniscus was debrided down to a stable base using a series of biters and arthroscopic nilam. It was probed afterwards to confirm that the tear had been removed and the meniscus was stable. Cartilage surfaces were debrided of any flaps, leaving any intact fibers. The arthroscope was brought back into the suprapatellar pouch and the leg was in full extension. The knee was thoroughly irrigated with the arthroscopic fluid on high flow and pressure. Inflow was stopped and excess fluid was removed. The wounds were closed with 4-0 Nylon. They were dressed with Xeroform, 4x4 gauze, ABD pad, Kerlix and an MARANDA wrap. A cryo-cuff was applied. The patient tolerated the procedure well and was returned to the Same Day Surgery area in a stable condition suffering no known complication. Date of Procedure: 02/05/24
== END 2024-02-05 16:00 | disposition home or self-care (01) ==
PROVIDERS: PCP Family Medicine; Visit Provider Student in an Organized Health Care Education/Training Program
PROC: (CPT 29870; principal; 2024-02-05 14:30)
DX: S83.281A Other tear of lateral meniscus, current injury, right knee, initial encounter (principal); F32.A Depression, unspecified; F51.04 Psychophysiologic insomnia; E03.9 Hypothyroidism, unspecified
CPT/HCPCS: 29881; J0665; J0690; J1100; J2003; J2250; J2405; J2704; J3010